=== PATIENT | female | born 2000 | race Caucasian/White ===

== ENCOUNTER 2021-09-15 04:10 | Emergency (ER) | payer OTHER ==
[~2021-09-15] VITALS: Ht 170.2 cm; Wt 59.1 kg
[2021-09-15] MEDS ORDERED: ONDANSETRON PF 4 MG/2 ML VIAL. IVP ONE (06:15)
[2021-09-15] MEDS ORDERED: IV NORMAL SALINE 1000ML BAG 1,000 ML IV SCH (06:15)
[2021-09-15 06:30] LABS: BILIRUBIN,URINE NEGATIVE (NEG); CLARITY,URINE CLEAR; COLOR,URINE YELLOW; NITRITE,URINE NEGATIVE (NEG); PH,URINE 5.5 (<5.0-8.0); PROTEIN,URINE NEGATIVE (NEG-TRACE); UROBILINOGEN,URINE 0.2 mg/dL (0.2 mg/dL)
[2021-09-15 07:03] LABS: BACTERIA,URINE FEW /HPF (0-FEW); RBC,URINE 0 /HPF (0-2); WBC,URINE OCC /HPF (0-4)
[2021-09-15 07:15] VITALS: BP 111/69
--- NOTE | 2021-09-15 07:29 | PHYS DOC ---
Past Medical History Past Medical History: No Pertinent History Past Surgical History: Other Additional Past Surgical Histo: FEMUR FRACTURE, wisdom teeth Smoking Status: Never Smoker Alcohol Use: Rarely Drug Use: None General Adult EDM: Chief Complaint: ABDOMINAL PAIN IN HPI: HPI: Patient is a 20 year old female here for vaginal spotting and lower abdominal cramping that began 5 hours ago. She states she had a positive at-home test two days ago and states that this would be her first . Her LMP was 08/14/21 and her cycle was due to start on 09/12/21. She denies soaking through a tampon or pad since the onset of bleeding but states the spotting has been consistent. She denies passing any clots or tissue. The abdominal cramping is intermittent. She also notes some dizziness that she states is improving. She denies abnormal vaginal discharge. She otherwise has no complaints. Denies fever or chills. Patient does report some urinary frequency. Review of Systems: Review of Systems: Constitutional: Denies fever or chills Respiratory: Denies cough or shortness of breath Cardiovascular: Denies chest pain or palpitations GI: Reports abdominal cramping and nausea, denies vomiting or diarrhea : Reports vaginal bleeding and increased urinary frequency; denies vaginal discharge, dysuria, or hematuria Neurologic: Reports dizziness; denies headache Complete systems were reviewed and found to be within normal limits, except as documented in this note. Heart Score: C/O Chest Pain: N/A Current Medications: Current Medications Medications (Trade) Dose Ordered Sig/Glenn Start Time Stop Time Status Last Admin Dose Admin Ondansetron HCl (Zofran) 4 mg 1X ONCE 09/15/21 06:15 09/15/21 06:41 DC Sodium Chloride 1,000 ml @ 1,000 mls/hr Q1H 09/15/21 06:15 09/15/21 06:41 DC Allergies: Allergies: Allergies Coded Allergies Type Severity Reaction Last Updated Verified No Known Drug Allergies 09/15/21 No Physical Exam: PE: Constitutional: Well developed, well nourished, no acute distress, non-toxic appearance HENT: Normocephalic, atraumatic Eyes: Conjunctiva normal, no discharge Neck: Normal range of motion, supple Lungs & Thorax: No respiratory distress, equal chest rise and fall Abdomen: Soft, no tenderness, no guarding/rebound tenderness/distention, bowel sounds normal Pelvic exam: Deferred Skin: Warm, dry, no erythema, no rash Extremities: No tenderness, no edema Neurologic: Alert and oriented X 3, no focal deficits noted Psychologic: Affect normal, judgment normal Current Patient Data: Labs: Laboratory Tests Test 09/15/21 05:55 09/15/21 06:06 Urine Collection Type Void Urine Color Yellow Urine Clarity Clear Urine pH 5.5 (<5.0-8.0) Urine Specific Dodge <=1.005 (1.000-1.030) Urine Protein Negative mg/dL (NEG-TRACE) Urine Glucose (UA) Negative mg/dL (NEG) Urine Ketones (Stick) Negative mg/dL (NEG) Urine Blood Large (NEG) Urine Nitrite Negative (NEG) Urine Bilirubin Negative (NEG) Urine Urobilinogen Dipstick 0.2 mg/dL (0.2 mg/dL) Urine Leukocyte Esterase Trace (NEG) Urine RBC 0 /HPF (0-2) Urine WBC Occ /HPF (0-4) Urine Squamous Epithelial Cells Mod /LPF Urine Bacteria Few /HPF (0-FEW) POC Urine HCG, Qualitative Hcg negative (Negative) Vital Signs: Vital Signs Date Time Temp Pulse Resp B/P (MAP) Pulse Ox O2 Delivery O2 Flow Rate FiO2 09/15/21 05:46 98.4 69 18 113/80 (91) 100 Room Air 98.4 EKG: EKG: [] Radiology/Procedures: Radiology/Procedures: [] Course & Med Decision Making: Course & Med Decision Making Pertinent Lab studies reviewed. (See chart for details) Patient presented for vaginal bleeding and cramping after having a positive at- home test two days ago. Urine hCG in the ED was negative. UA was obtained which was negative for infection. Bleeding is most likely due to patient's normal menstrual cycle. Patient stable for discharge with outpatient follow-up with PCP/LIN[facility] SORTER. Discussed findings and plan with patient, who acknowledges understanding and agreement. Armando Disclaimer: Armando Disclaimer: This electronic medical record was generated, in whole or in part, using a voice recognition dictation system. Departure Departure Impression: Primary Impression: Feared condition not demonstrated Additional Impression: Vaginal spotting Disposition: HOME / SELF CARE / HOMELESS Condition: STABLE Referrals: NO PCP (PCP) Patient Instructions: Normal Exam in Emergency Department Additional Instructions: Unfortunately your urine test found in the emergency department was negative. Vaginal spotting is likely secondary to menstrual cycle. Increase hydration and please follow closely with your LINEN SORTER. IGOR PANDYA DO Sep 15, 2021 07:29
== END 2021-09-15 07:45 | disposition home or self-care (01) ==
LOC: ER 04:10
DX: O46.91 Antepartum hemorrhage, unspecified, first trimester (principal); Z71.1 Person with feared health complaint in whom no diagnosis is made; Z3A.00 Weeks of gestation of pregnancy not specified
CPT/HCPCS: 81001; 81025; 87077; 87086; 99283